=== PATIENT | female | born 1995 | race Caucasian/White ===

== ENCOUNTER 2017-01-03 10:48 | Emergency (ER) | payer SELFPAY | END 2017-01-03 12:13 | disposition left against medical advice (07) | LOC: ER 10:48 | DX: M54.5 Low back pain (principal); F32.9 Major depressive disorder, single episode, unspecified; Z79.899 Other long term (current) drug therapy; V49.40XA Driver injured in collision with unspecified motor vehicles in traffic accident, initial encounter ==